=== PATIENT | female | born 1970 | race Two or more races ===

== ENCOUNTER → 2024-12-16 | Outpatient (CLI) | payer MEDICAID, SELFPAY ==
--- NOTE | 2024-12-16 09:15 | XR_ITS ---
Examination: Thyroid sonography complete TECHNIQUE: Grayscale sonographic images thyroid lobes are carful analysis Exam date and time: December 16, 2024 0948 hours INDICATIONS: Diagnosis thyroid disorder FINDINGS: Right thyroid 4.6 x 1.4 x 1.6 cm Left thyroid 4.7 x 1.4 x 1.4 cm No solid nodules depicted IMPRESSION: Negative examination
== END | disposition home or self-care (01) ==
LOC: CDIM 09:32
PROVIDERS: Referring Provider Physician Assistant; Visit Provider Physician Assistant
DX: E07.9 Disorder of thyroid, unspecified (principal)
CPT/HCPCS: 76536

== ENCOUNTER → 2025-01-15 | Outpatient (CLI) | payer MEDICAID, SELFPAY ==
--- NOTE | 2025-01-15 14:15 | XR_ITS ---
Examination: Breast ultrasound, unilateral, left Date and time of exam: January 15, 2025 at 1450 hours INDICATIONS: Left breast pain onset several months ago Technique: Real-time cruz scale ultrasonographic imaging performed left breast including all 4 quadrants as well as nipple retroareolar and axillary region. Findings: 12:00 cyst 4 x 3 mm 9:00 cyst 5 x 3 mm Dilated retroareolar ducts IMPRESSION: BI-RADS Category 2: Benign findings
--- NOTE | 2025-01-15 14:45 | XR_ITS ---
Examination: Screening digital mammography, bilateral Computer aided detection 3-D breast Tomosynthesis, bilateral Date and time of exam: January 15, 2025 at 1504 hours INDICATIONS: Left breast pain beginning 2 months ago, screening Technique: Nonmagnified MLO, CC views of the breasts to been obtained, reconstructed from 3-D Tomosynthesis images. R2 computer aided detection program utilized for evaluation of suspicious masses and/or abnormal calcifications. 3-D Tomosynthesis images obtained. Findings: The breasts are heterogeneously dense, which may obscure small masses Benign calcifications. No suspicious masses Impression: BI-RADS category II: Benign Findings. Recommend 1 year follow-up mammogram.
== END | disposition home or self-care (01) ==
LOC: CDIM 14:18
PROVIDERS: PCP Physician Assistant; Referring Provider Physician Assistant; Visit Provider Physician Assistant
DX: Z12.31 Encounter for screening mammogram for malignant neoplasm of breast (principal); R92.322 Mammographic fibroglandular density, left breast; R92.1 Mammographic calcification found on diagnostic imaging of breast; N60.02 Solitary cyst of left breast
CPT/HCPCS: 76641; 77063; 77067

== ENCOUNTER 2025-06-09 09:25 | Emergency (ER) | payer MEDICAID, SELFPAY ==
[2025-06-09 09:34] VITALS: BP 141/92; PULSE 81; RESP 18; TEMP 37.1; O2SAT 98
--- NOTE | 2025-06-09 09:36 | XR_ITS ---
Examination: CT brain head without contrast. 2-D sagittal coronal reconstructions Date and time of exam:June 09, 2025 0949 hours INDICATIONS: Headaches weakness dizziness today CTDI: vol (mGy):45.1 DLP: (mGycm):876 Technique: Multiple CT axial sections of the brain have been obtained, 5 mm slice thickness. Contrast has not been administered. 2-D sagittal, coronal reconstructions have been obtained Low dose protocols were performed. One or more of the following dose reduction techniques were used; automated exposure control, adjustment of the mA and/or KV according to patient size, use of iterative reconstruction technique. Findings: No significant ventricular enlargement. Intra-axial or extra-axial hemorrhage density is not seen. No mass effect or midline shift Basal cisterns are not remarkable. Fourth ventricle is midline. Cranial vault intact. Impression: Negative for acute hemorrhage, mass effect or midline shift Advise clinical correlation and follow-up accordingly
--- NOTE | 2025-06-09 09:37 | EKG_ITS ---
[facility] Test Date: 2025-06-09 Pat Name: LLOYD COLEMAN Department: Room: - Gender: Female Physical Chemist: : 1970 Requested By: Roldan Kaplan (LESLIE) Order Number: [id number] Reading MD: Roldan Kaplan ([employer]) Measurements Intervals [place] Rate: 77 P: 26 OK: 163 QRS: 16 QRSD: 85 T: 71 QT: 384 QTc: 435 Interpretive Statements SINUS RHYTHM NONSPECIFIC T-WAVE ABNORMALITY No previous ECG available for comparison /[id number]/S0/[id number]/ecg/[id number].pdf
--- NOTE | 2025-06-09 09:37 | PD.EDRME ---
Rapid Medical Screening Exam RME Arrival date/time: 06/09/25 09:25 54-year-old female presents to the emergency department today for complaints of headache and dizziness which began today Chief Complaint: Dizziness Vital signs: Vital Signs Temperature 98.8 F 06/09/25 09:34 Pulse Rate 81 06/09/25 09:34 Respiratory Rate 18 06/09/25 09:34 Blood Pressure 141/92 H 06/09/25 09:34 Pulse Oximetry (%) 98 06/09/25 09:34 Oxygen Delivery Method Room Air 06/09/25 09:34
[2025-06-09] MEDS: ACETAMINOPHEN 500 MG TABLET 1000 MG PO (09:53)
[2025-06-09] MEDS: MECLIZINE HCL 25 MG TABLET 50 MG PO (09:54)
[2025-06-09] MEDS: ONDANSETRON ODT 4 MG TABRAP PO (09:54)
[2025-06-09 10:16] LABS: Basophils # (Auto) 0.0 Thou/mm3 (0.0-0.2); Basophils % (Auto) 0 % (0-2.5); Eosinophils # (Auto) 0.1 Thou/mm3 (0.0-0.5); Eosinophils % (Auto) 1 % (0-10); Hematocrit 41.6 % (36.0-46.0); Hemoglobin 14.1 g/dL (12.0-16.0); Immature Granulocytes Auto 0.03 Thou/mm3 (0.00-0.00); Lymphocytes # (Auto) 2.1 Thou/mm3 (1.0-4.8); Lymphocytes % (Auto) 22 % (10-50); Mean Corpuscular HGB Conc 33.9 g/dl (31.0-37.0); Mean Corpuscular Hemoglobin 28.5 pg (25.0-35.0); Mean Corpuscular Volume 84 fL (80-100); Monocytes # (Auto) 0.6 Thou/mm3 (0.0-0.8); Monocytes % (Auto) 6 % (0-12); Neutrophils # (Auto) 6.5 Thou/mm3 (1.8-7.7); Neutrophils % (Auto) 70 % (37-80); Nucleated Red Blood Cell # 0.00 Thou/mm3 (0.00-0.00); Nucleated Red Blood Cell % 0 /100 WBC (0); Platelet Count 368 Thou/mm3 (140-440); RDW Standard Deviation 43.2 fL (36.4-46.3); Red Blood Count 4.94 Miln/mm3 (4.00-5.20); White Blood Count 9.3 Thou/mm3 (3.6-11.0)
[2025-06-09 10:27] LABS: Collection Type, Urine Clean Catch
[2025-06-09 10:34] LABS: HCG Qualitative,Urine Negative
[2025-06-09 10:36] LABS: B-Type Natriuretic Peptide < 20 pg/mL (0-100)
[2025-06-09 10:37] LABS: Alanine Aminotransferase 13 U/L (10-49); Albumin, Serum 4.8 gm/dL (3.5-5.0); Albumin/Globulin Ratio 1.5 (1.2-2.2); Alkaline Phosphatase 88 U/L (46-116); Anion Gap 9 (7-16); Aspartate Amino Transferase 18 U/L (0-34); BUN/Creatinine Ratio 13 Ratio (12-20); Bilirubin,Total 0.8 mg/dL (0.3-1.2); Blood Urea Nitrogen 10 mg/dL (9-23); Calcium 9.3 mg/dL (8.3-10.6); Calcium (Corrected) 9.3 mg/dL (8.5-10.1); Carbon Dioxide 27.6 mMol/L (20.0-31.0); Chloride 104 mMol/L (98-107); Creatinine (Component) 0.8 mg/dL (0.6-1.3); Globulin 3.2 gm/dL (2.3-3.5); Glucose 104 mg/dL (74-106); INR 1.0 (0.9-1.3); Magnesium 1.9 mg/dL (1.6-2.6); Osmolality,Calculated 280 (275-295); Partial Thromboplastin Time 26.4 Seconds (22.0-36.0); Potassium 3.8 mMol/L (3.4-5.1); Prothrombin Time 11.0 Seconds (9.0-12.2); Sodium 141 mMol/L (136-145); Total Protein 8.0 gm/dL (5.7-8.2); Troponin I < 0.002 ng/mL (0.0-0.045); eGFR > 60 See Note
[2025-06-09 10:39] LABS: Amorphous Crystals,Urine Present (Absent); Bacteria,Urine 1+; Bilirubin,Urine Negative (Negative); Blood,Urine Trace (Negative); Color,Urine Yellow (Lt Yel-Yel); Glucose, Urine Negative (Negative); Hyaline Casts,Urine < 1 /hpf (0-1); Ketones,Urine Negative (Negative); Leukocyte Esterase,Urine Negative (Negative); Nitrite,Urine Negative (Negative); PH,Urine 5.5 (5.0-7.0); Protein,Urine Trace (Neg - Trace); RBC,Urine 3 /hpf (0-3); Specific Gravity,Urine 1.028 (1.001-1.035); Squamous Epithelial Cell,Urine 6 /hpf (0-5); Urobilinogen,Urine Negative mg/dL (0.0-1.0); WBC,Urine 5 /hpf (0-5)
[2025-06-09 10:41] LABS: Amphetamine/Methamp Scrn,U Negative (Negative); Barbiturate Screen,Urine Negative (Negative); Benzodiazepines Screen,Urine Negative (Negative); Benzoylecgonine Screen, Ur Negative (Negative); Fentanyl Screen,Urine Negative (Negative); Opiate Screen,Urine Negative (Negative); THC Screen,Urine Negative (Negative)
[2025-06-09 10:48] LABS: Clarity,Urine Cloudy (Clear/Hazy)
--- NOTE | 2025-06-09 11:51 | PD.EDDIZZY ---
ED Dizzyness RME/HPI General Chief Complaint: Dizziness Stated Complaint: dizziness, n/vomiting, headache x 3 hours Arrival date/time: 06/09/25 09:25 RME / HPI RME / HPI Narrative: 06/09/25 09:25 54-year-old female presents to the emergency department today for complaints of headache and dizziness which began today DR. JOSEPH MAIN ED EVALUATION 54 year old female presents to the ED for evaluation of dizziness beginning after waking this morning. Described as room spinning sensation, rating as moderate. Aggravated with change in position or head movements. Accompanied by nausea, vomiting, and diffuse headache. Reports she had experienced dizziness 10+ years ago and headaches as well, however never together which concerned her. Denies any unilateral weakness, change in speech or vision, fevers, ear pain, recent illness, diarrhea, or urinary symptoms. Patient mentioned she has been under a lot of stress recently and occasionally feels her muscles are tense. Related Data Previous Rx's ?Medication ?Instructions ?Recorded meclizine 25 mg tablet 25 mg PO TID PRN dizziness #20 tabs 06/09/25 Allergies Allergy/AdvReac Type Severity Reaction Status Date / Time No Known Allergies Allergy Verified 06/09/25 09:28 Review of Systems Review of Systems Systems Reviewed: All systems reviewed, normal except as documented Past Medical History Social History SMOKING STATUS: Never smoker ED Exam Narrative Physical exam: Constitutional: Awake, alert, nontoxic, no acute distress HEENT: NC, AT, EOMI, slight left beating nystagmus Neck: Supple CV: RRR, no m/r/g Lungs: CTAB, no w/r/r, no respiratory distress. Abd: Soft, NT, NT, no HSM noted to palpation Extremities: No deformities, no edema noted Neuro: AAOx3, CN 2-12 GIBL, no acute neuro deficit noted, slight left beating nystagmus, romberg negative, gait normal, alternating head movements are intact Skin: Warm, dry, intact Course Quality Measures none Orders Category Date Time Status EKG (ED ONLY) *Do not use* NOW Care 06/09/25 09:[address] head/brain wo con Stat Exams 06/09/25 09:36 Completed EKG (ED Only) Stat Exams 06/09/25 09:37 Draft B-Type Natriuretic Peptide Stat Lab 06/09/25 10:05 Completed CBC Stat Lab 06/09/25 10:05 Completed Comprehensive Metabolic Panel Stat Lab 06/09/25 10:05 Completed Drug Screen,Urine Stat Lab 06/09/25 10:20 Completed HCG Qualitative,Urine Stat Lab 06/09/25 10:20 Completed Magnesium Stat Lab 06/09/25 10:05 Completed Partial Thromboplastin Time Stat Lab 06/09/25 10:05 Completed Prothrombin Time with INR Stat Lab 06/09/25 10:05 Completed Troponin I Stat Lab 06/09/25 10:05 Completed Urinalysis Stat Lab 06/09/25 10:20 Completed Acetaminophen Tab [Tylenol ES Tab] Med 06/09/25 09:37 Discontinued 1,000 mg PO X1 ONE Meclizine HCl [Antivert] Med 06/09/25 09:37 Discontinued 50 mg PO X1 ONE Ondansetron Odt [Zofran Odt] Med 06/09/25 09:37 Discontinued 4 mg PO X1 ONE Vital Signs Vital signs: Vital Signs Temperature 98.8 F 06/09/25 09:34 Pulse Rate 81 06/09/25 09:34 Respiratory Rate 18 06/09/25 09:34 Blood Pressure 141/92 H 06/09/25 09:34 Pulse Oximetry (%) 98 06/09/25 09:34 Oxygen Delivery Method Room Air 06/09/25 09:34 Pulse ox is 98% on room air which is adequate. Dizziness MDM Narrative MDM Narrative:: Vanesa Boudreaux am scribing for and in the presence of Dr. Joseph. Patient data External records reviewed:: None (No previous ED visits for review ) Clinical information provided by:: patient Social determinants that could affect healthcare access:: none Patient has the following chronic illnesses:: None reported How is presenting disease/condition affected by chronic disease/condition?: no chronic disease Evaluation data The following diagnostics were reviewed and interpreted by me:: lab results, radiology exam(s) and EKG tracing(s) (06/09/2025 @ 09:38 AM. Normal sinus rhythm, rate 77, no STEMI ) Lab and/or radiology exams considered but not ordered:: None Interpretation Summary: Ordering Physician: Roldan Kaplan NP, NP Date of Service: 06/09/25 Procedure(s): CT head/brain wo con Accession Number(s): [id number] cc: Rosaura TORRES),Roldan NELSON; Elias Marin MD~ Examination: CT brain head without contrast. 2-D sagittal coronal reconstructions Date and time of exam:June 09, 2025 0949 hours INDICATIONS: Headaches weakness dizziness today CTDI: vol (mGy):45.1 DLP: (mGycm):876 Technique: Multiple CT axial sections of the brain have been obtained, 5 mm slice thickness. Contrast has not been administered. 2-D sagittal, coronal reconstructions have been obtained Low dose protocols were performed. One or more of the following dose reduction techniques were used; automated exposure control, adjustment of the mA and/or KV according to patient size, use of iterative reconstruction technique. Findings: No significant ventricular enlargement. Intra-axial or extra-axial hemorrhage density is not seen. No mass effect or midline shift Basal cisterns are not remarkable. Fourth ventricle is midline. Cranial vault intact. Impression: Negative for acute hemorrhage, mass effect or midline shift Advise clinical correlation and follow-up accordingly Dictated By: Elias Marin MD Signed By: <Electronically signed by Elias Marin MD in OV> 06/09/25 1037 Medications / Prescriptions Medications or Prescriptions considered but not ordered:: None Medication administrations:: Medication Administration History Discontinued Medications Acetaminophen (Acetaminophen 500 Mg Tablet) 1,000 mg PO X1 ONE Stop: 06/09/25 09:38 Last Admin: 06/09/25 09:53 Dose: 1,000 mg Documented By: GRACE Meclizine HCl (Meclizine Hcl 25 Mg Tablet) 50 mg PO X1 ONE Stop: 06/09/25 09:38 Last Admin: 06/09/25 09:54 Dose: 50 mg Documented By: GRACE Ondansetron HCl (Ondansetron Odt 4 Mg Tabrap) 4 mg PO X1 ONE; Protocol Stop: 06/09/25 09:38 Last Admin: 06/09/25 09:54 Dose: 4 mg Documented By: GRACE See above Consultations Consultation(s) initiated? (list below): No Diagnosis Dizziness Differential Diagnosis: benign paroxysmal positional vertigo, orthostatic hypotension, cerebrovascular accident and transient cerebral ischemia Most likely diagnosis given after review of the tests above:: Benign paroxysmal positional vertigo Headache Admission Indicated Admission indicated?: not indicated Admission Request Was there a request for admission?: No Disposition Plan Disposition Plan: Discharge Discharge Attestation Discharge Attestation: The patient and all family members were given an opportunity to ask questions and understood the discharge instructions. Discharge instructions specifically effects, indications for sooner follow up or return to the emergency department, and the expected course of current diagnosis. Patient condition: Stable Discharge Plan Plan Patient Disposition: HOME (Self Care) Patient condition on transfer: Stable Prescriptions/Referrals Prescriptions/Med Rec: New meclizine 25 mg tablet 25 mg PO TID PRN (Reason: dizziness) Qty: 20 0RF Referrals: No Primary/Family,Physician [Primary Care Provider] - In 1 week Problem List Clinical Impression: Benign paroxysmal positional vertigo, Headache Patient/Caregiver Discharge Instructions Education Materials: Self-Care for Headaches, Inner Ear Balance, Vertigo Medicine Tx, BPPV Additional Instructions: For future reference: Meclizine can be bought without prescription at any pharmacy under the name 'non-drowsy dramamine'. May take Tylenol 1 g every 6 hours as needed for headache. May also try naproxen 500 mg twice daily as needed for headache or ibuprofen 600 mg 3 times daily as needed for headache. Make sure that you take these medications with food as they may cause stomach upset. Print Language: [employer] Stand Alone Forms: Mariela Award Info., Patient Portal Info Letter
[2025-06-09 12:31] VITALS: BP 138/77; PULSE 79; RESP 16; TEMP 36.7; O2SAT 98
== END 2025-06-09 12:31 | disposition home or self-care (01) ==
PROVIDERS: Nurse Practitioner Primary Care; Emergency Provider Family Medicine
DX: H81.10 Benign paroxysmal vertigo, unspecified ear (principal); R94.31 Abnormal electrocardiogram [ECG] [EKG]
CPT/HCPCS: 36415; 70450; 80053; 80307; 81001; 81025; 83735; 83880; 84484; 85025; 85610; 85730; 93005; 99283; Q0162; A9270

== ENCOUNTER 2025-10-08 09:55 | Day surgery (SDC) | payer MEDICAID, SELFPAY ==
[2025-10-08] VITALS (10 sets, daily range): BP systolic 127–172; BP diastolic 77–120; PULSE 73–87; RESP 12–18; TEMP 36.3–36.5; O2SAT 94–100; BMI 35.3
[2025-10-08] MEDS: BENZOCAINE 20% (Hurricaine) SPRAY 1 DOSE TOP (12:04)
[2025-10-08] MEDS: RINGERS LACTATED 500 ML 500 ML 20 ML IV (12:04)
[2025-10-08] MEDS: fentaNYL CIT INJ 50 mCg/ML AMP 2ML (ASD USE ONLY) IVP (12:07)
[2025-10-08] MEDS: MIDAZOLAM INJ 1 MG/ML VIAL 2 ML (ASD USE ONLY) 2 MG IVP (12:07)
--- NOTE | 2025-10-08 12:17 | SUR.PHASEII ---
1217 PATIENT INTO RECOVERY ROOM WITH NO ACUTE DISTRESS NOTED, V/S STABLE WITH EXCEPTION OF ELEVATED BLOOD PRESSURE. AT BEDSIDE AND ORDERS LABETALOL 2.5MG IVP. PATIENT REPOSITIONED. REPORT RECEIVED FROM TATIANA BILLINGS.
--- NOTE | 2025-10-08 12:39 | SUR.PHASEII ---
AT BEDSIDE, HE IS INFORMED OF REPEAT BLOOD PRESSURE FOLLOWING LABETALOL ADMINISTRATION.
--- NOTE | 2025-10-08 13:43 | SUR.PHASEII ---
PATIENT RESTING COMFORTABLY IN CHAIR, DRINKING APPLEJUICE WITH NO DIFFICULTY. PATIENT DENIES PAIN AND NAUSEA AT THIS TIME. AWAITING FOR RIDE ARRIVAL.
--- NOTE | 2025-10-08 13:51 | SUR.PHASEII ---
PATIENT RIDE HOME IS HERE, ANDREW RN/CERTIFIED [employer]SEM[employer] SUPERVISOR IS GIVING DISCHARGE INSTRUCTIONS.
== END 2025-10-08 13:54 | disposition home or self-care (01) ==
PROVIDERS: PCP Physician Assistant; Referring Provider Internal Medicine Gastroenterology; Visit Provider Internal Medicine Gastroenterology
PROC: (CPT 43239; principal; 2025-10-08 11:15)
DX: K22.10 Ulcer of esophagus without bleeding (principal); K21.00 Gastro-esophageal reflux disease with esophagitis, without bleeding; I10 Essential (primary) hypertension; E88.810 Metabolic syndrome; K29.50 Unspecified chronic gastritis without bleeding
CPT/HCPCS: 43239; 81025; A4649; J1200; J1920; J2250; J3010; J7120; A9270